=== PATIENT | male | born 1950 | race Caucasian/White ===

== ENCOUNTER → 2017-08-01 | Outpatient (CLI) | payer OTHER, MEDICARE | LOC: BMCIMAGING 14:28 | PROVIDERS: ATTEND Physician Assistant | DX: M16.12 Unilateral primary osteoarthritis, left hip (principal) ==

== ENCOUNTER 2018-07-06 18:32 | Emergency (ER) | payer OTHER, MEDICARE ==
[2018-07-06] MEDS ORDERED: DIAZEPAM 5 MG TAB PO ONE (18:55)
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
[2018-07-06 20:53] VITALS: BP 142/86
== END 2018-07-06 21:10 | disposition home or self-care (01) ==
DX: S16.1XXA Strain of muscle, fascia and tendon at neck level, initial encounter (principal); V49.49XA Driver injured in collision with other motor vehicles in traffic accident, initial encounter; Y92.410 Unspecified street and highway as the place of occurrence of the external cause

== ENCOUNTER → 2018-09-30 | Outpatient (CLI) | payer OTHER, MEDICARE ==
[~2018-09-30] MED LIST: GADOBUTROL 10 ML VIAL IVP ONE
== END ==
LOC: FIMAGING 06:28
PROVIDERS: ATTEND Physician Assistant Medical
DX: S06.0X9D Concussion with loss of consciousness of unspecified duration, subsequent encounter (principal); R42 Dizziness and giddiness; R51 Headache; R90.82 White matter disease, unspecified; G31.9 Degenerative disease of nervous system, unspecified
CPT/HCPCS: 70553; A9585; 82565-PO